=== PATIENT | male | born 1975 | race Caucasian/White ===

== ENCOUNTER 2017-01-18 10:20 | Emergency (ER) | payer OTHER ==
[2017-01-18] MEDS ORDERED: KETOROLAC 60 MG/2 ML VIAL IM STA (11:16)
[2017-01-18] MEDS ORDERED: DIAZEPAM 5 MG TAB PO STA (11:16)
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
--- NOTE | 2017-01-18 12:16 | XR ---
EXAMINATION TYPE: XR lumbar spine 2 or 3V DATE OF EXAM: 01/18/2017 11:53 AM CLINICAL HISTORY: pain TECHNIQUE: Three views of the lumbar spine are submitted. COMPARISON: None. FINDINGS: There are 5 lumbar type vertebral bodies identified. Postoperative changes of fusion at L4-5. Grade 1 anterolisthesis L4 on L5 of 5 mm. Degenerative narrowing L5-S1. Remaining levels appear unremarkable . IMPRESSION: No acute fracture or dislocation is seen in the lumbar spine. Postoperative changes as discussed. ICD 10 NO FRACTURE, INITIAL EVALUATION
[2017-01-18 13:37] VITALS: BP 143/89; PULSE 70; RESP 16; TEMP 97.2
== END 2017-01-18 13:20 | disposition home or self-care (01) ==
LOC: EC 10:20
DX: M54.5 Low back pain (principal); G89.29 Other chronic pain; X50.9XXA Other and unspecified overexertion or strenuous movements or postures, initial encounter; Z98.1 Arthrodesis status; F17.200 Nicotine dependence, unspecified, uncomplicated
CPT/HCPCS: 72100; 99283; 96372; J1885

== ENCOUNTER → 2017-02-04 | Outpatient (CLI) | payer OTHER ==
--- NOTE | 2017-02-04 08:46 | CT ---
EXAMINATION TYPE: CT lumbar spine w con DATE OF EXAM: 02/04/2017 8:29 AM COMPARISON: NONE Contrast: 100 cc Omnipaque 300 HISTORY: low back pain, hx of fusion in 2006 CT DLP: 646.9 mGycm Automated exposure control for dose reduction was used. CONTRAST: CT scan of the lumbar is performed with IV Contrast, patient injected with 100 mL of Omnipaque 300. Enhanced CT of the lumbar spine was performed. Bone and soft tissue window settings are submitted as well as coronal and sagittal reconstructions. L1-L2: Normal disc space height. No disc herniation protrusion or central stenosis. No facet joint arthropathy. No evidence for foraminal encroachment. L2-L3: Normal disc space height. No disc herniation protrusion or central stenosis. No facet joint arthropathy. No evidence for foraminal encroachment. L3-L4: There is circumferential disc bulging and mild effacement of thecal sac. Mild bilateral forami nal encroachment. Postsurgical changes are noted posteriorly. L4-L5: Findings suggest previous fusion. Metallic artifact obscures detail the spinal canal. L5-S1: Loss of disc space and mild hypertrophic changes. No obvious disc herniation. Neural foramina remain patent. IMPRESSION: 1. Postsurgical changes L4-L5. Findings compatible with fusion. Metallic artifact secures the spinal canal results are nondiagnostic in assessment this level. Artifact extends up to the L3-L4 level are a however, findings are suggestive of a circumferential disc bulge at L3-L4 with mild effacement of t hecal sac. Mild bilateral foraminal encroachment at L3-L4.
== END ==
LOC: RADCTMAIN 08:01
PROVIDERS: ATTEND Nurse Practitioner Family
DX: Z98.1 Arthrodesis status (principal); M54.5 Low back pain
CPT/HCPCS: 72132; Q9967